=== PATIENT | male | born 1980 | race Caucasian/White ===

== ENCOUNTER 2016-12-03 16:30 | Emergency (ER) | payer SELFPAY ==
[~2016-12-03] VITALS: Ht 175.3 cm; Wt 90.0 kg
[2016-12-03 16:32] VITALS: BP 163/86; PULSE 60; RESP 20; TEMP 98.4; O2SAT 98
== END 2016-12-03 18:44 | disposition left against medical advice (07) ==
LOC: NETRI 16:30
DX: R56.9 Unspecified convulsions (principal); Z53.21 Procedure and treatment not carried out due to patient leaving prior to being seen by health care provider
CPT/HCPCS: 99281

== ENCOUNTER 2016-12-05 12:33 | Emergency (ER) | payer SELFPAY ==
[~2016-12-05] VITALS: Ht 175.3 cm; Wt 86.3 kg
[2016-12-05 12:35] VITALS: BP 173/88; PULSE 48; RESP 20; TEMP 98; O2SAT 100
--- NOTE | 2016-12-05 12:51 | PD ---
Physical Exam Date Seen by Provider: Dec 05, 2016 Time Seen by Provider: 12:47 Narrative 36-year-old white male presents to emergency department for evaluation of seizures. The patient states that he is had a history of seizure disorder but has not been on medications for many years. The patient reports having recurrent seizures now over the last few weeks. He has had 2 seizures. He states that he has taken Xanax in the past. He states that he has not taken Xanax now in a month. He denies any recent illness. No recent injury. He states that he is here to get on something for his seizures so he can get medical clearance to return to work. Vital signs reviewed. Awaiting bed placement. Data Data Last Documented VS Vital Signs Date Time Temp Pulse Resp B/P (MAP) Pulse Ox O2 Delivery O2 Flow Rate FiO2 12/05/16 12:35 98.0 48 20 173/88 (116) 100 Room Air [facility] Medical Record Reviewed: No Supervised Visit with ANSELMO: Sebastian Calderon Dec 05, 2016 12:51
--- NOTE | 2016-12-05 13:27 | PD ---
HPI Chief Complaint: Medical Clearance Time Seen by Provider: 13:13 Travel History International Travel<30 days: No Contact w/Intl Traveler<30days: No Traveled to known affect area: No History of Present Illness HPI Patient is a 36-year-old male presenting to the emergency department for evaluation of seizures. Patient states that he needs a work note to return to work. He reports a history of seizure disorder since he was 14 years old related to a head injury, he states that he was taking Xanax 1-2 times a day until one month ago. Since that time he's had 2 seizures last one was approximately one week ago. He was on Depakote several years ago but has not been on any other medications since that time. After the last seizure which occurred at work patient was taken to [facility] in [place], he states they gave him a Xanax and sent him home. Patient does not want to be on Xanax. He wants to be able to return to work. Patient states that he did not lose control of his bladder or bowels during the seizures. [facility] Past Medical History Seizures: Yes Social History Alcohol Use: No Tobacco Use: No Substance Use: No Allergies-Medications (Allergen,Severity, Reaction): Coded Allergies: No Known Allergies (Unverified , 12/05/16) Reported Meds & Prescriptions Reported Meds & Active Scripts Active No Active Prescriptions or Reported Medications Review of Systems Except as stated in HPI: all other systems reviewed are Neg Neurologic: Positive: Seizures Physical Exam Narrative GENERAL: Well-developed, well-nourished, alert male. Resting comfortably in no acute distress. SKIN: Warm and dry. HEAD: Atraumatic. Normocephalic. EYES: Pupils equal and round. No scleral icterus. No injection or drainage. ENT: No nasal bleeding or discharge. Mucous membranes pink and moist. NECK: Trachea midline. No JVD. CARDIOVASCULAR: Regular rate and rhythm. RESPIRATORY: No accessory muscle use. Clear to auscultation. Breath sounds equal bilaterally. GASTROINTESTINAL: Abdomen soft, non-tender, nondistended. Hepatic and splenic margins not palpable. MUSCULOSKELETAL: Extremities without clubbing, cyanosis, or edema. No obvious deformities. NEUROLOGICAL: Awake and alert. No obvious cranial nerve deficits. Motor grossly within normal limits. Five out of 5 muscle strength in the arms and legs. Normal speech. PSYCHIATRIC: Appropriate mood and affect; insight and judgment normal. Data Data Last Documented VS Vital Signs Date Time Temp Pulse Resp B/P (MAP) Pulse Ox O2 Delivery O2 Flow Rate FiO2 12/05/16 12:35 98.0 48 20 173/88 (116) 100 Room Air Orders Orders Complete Blood Count With Diff (12/05/16 13:24) Electrocardiogram (12/05/16 ) Ct Brain W/O Iv Contrast(Rout) (12/05/16 ) Iv Access Insert/Monitor (12/05/16 13:24) Comprehensive Metabolic Panel (12/05/16 13:24) Sodium Chloride 0.9% Flush (Ns Flush) (12/05/16 13:30) Mandatory Outpatient Referral (12/05/16 14:42) Labs Laboratory Tests Test 12/05/16 14:00 White Blood Count 9.9 TH/MM3 Red Blood Count 5.19 MIL/MM3 Hemoglobin 14.8 GM/DL Hematocrit 45.6 % Mean Corpuscular Volume 87.8 FL Mean Corpuscular Hemoglobin 28.5 PG Mean Corpuscular Hemoglobin Concent 32.5 % Red Cell Distribution Width 14.1 % Platelet Count 232 TH/MM3 Mean Platelet Volume 8.2 FL Neutrophils (%) (Auto) 82.8 % Lymphocytes (%) (Auto) 10.6 % Monocytes (%) (Auto) 5.0 % Eosinophils (%) (Auto) 1.3 % Basophils (%) (Auto) 0.3 % Neutrophils # (Auto) 8.2 TH/MM3 Lymphocytes # (Auto) 1.0 TH/MM3 Monocytes # (Auto) 0.5 TH/MM3 Eosinophils # (Auto) 0.1 TH/MM3 Basophils # (Auto) 0.0 TH/MM3 CBC Comment DIFF FINAL Differential Comment Blood Urea Nitrogen 11 MG/DL Creatinine 1.09 MG/DL Random Glucose 101 MG/DL Total Protein 8.0 GM/DL Albumin 4.0 GM/DL Calcium Level 8.8 MG/DL Alkaline Phosphatase 78 U/L Aspartate Amino Transf (AST/SGOT) 19 U/L Alanine Aminotransferase (ALT/SGPT) 30 U/L Total Bilirubin 0.8 MG/DL Sodium Level 136 MEQ/L Potassium Level 4.4 MEQ/L Chloride Level 107 MEQ/L Carbon Dioxide Level 24.7 MEQ/L Anion Gap 4 MEQ/L Estimat Glomerular Filtration Rate 76 ML/MIN MDM Medical Decision Making Medical Screen Exam Complete: Yes Emergency Medical Condition: Yes Interpretation(s) Last Impressions Head CT 12/05/16 0000 Signed Impressions: Service Date/Time: Monday, December 05, 2016 13:55 - CONCLUSION: 1. No acute intracranial abnormality identified. Damon Leach MD Laboratory Tests Test 12/05/16 14:00 White Blood Count 9.9 TH/MM3 Red Blood Count 5.19 MIL/MM3 Hemoglobin 14.8 GM/DL Hematocrit 45.6 % Mean Corpuscular Volume 87.8 FL Mean Corpuscular Hemoglobin 28.5 PG Mean Corpuscular Hemoglobin Concent 32.5 % Red Cell Distribution Width 14.1 % Platelet Count 232 TH/MM3 Mean Platelet Volume 8.2 FL Neutrophils (%) (Auto) 82.8 % Lymphocytes (%) (Auto) 10.6 % Monocytes (%) (Auto) 5.0 % Eosinophils (%) (Auto) 1.3 % Basophils (%) (Auto) 0.3 % Neutrophils # (Auto) 8.2 TH/MM3 Lymphocytes # (Auto) 1.0 TH/MM3 Monocytes # (Auto) 0.5 TH/MM3 Eosinophils # (Auto) 0.1 TH/MM3 Basophils # (Auto) 0.0 TH/MM3 CBC Comment DIFF FINAL Differential Comment Blood Urea Nitrogen 11 MG/DL Creatinine 1.09 MG/DL Random Glucose 101 MG/DL Total Protein 8.0 GM/DL Albumin 4.0 GM/DL Calcium Level 8.8 MG/DL Alkaline Phosphatase 78 U/L Aspartate Amino Transf (AST/SGOT) 19 U/L Alanine Aminotransferase (ALT/SGPT) 30 U/L Total Bilirubin 0.8 MG/DL Sodium Level 136 MEQ/L Potassium Level 4.4 MEQ/L Chloride Level 107 MEQ/L Carbon Dioxide Level 24.7 MEQ/L Anion Gap 4 MEQ/L Estimat Glomerular Filtration Rate 76 ML/MIN Vital Signs Date Time Temp Pulse Resp B/P (MAP) Pulse Ox O2 Delivery O2 Flow Rate FiO2 12/05/16 12:35 98.0 48 20 173/88 (116) 100 Room Air Differential Diagnosis Metabolic abnormalities versus seizure disorder versus benzodiazepine withdrawal versus other Narrative Course Patient is a 28-year-old male presenting for medical clearance to return to work after having 2 seizures over the last 3 weeks. He does have a history of seizure disorder but has not been on Depakote in several years. The only medication he has been taking consistently his Xanax 2 mg tablets 1 or 2 times a day. He has not had this in a month. Labs and imaging ordered and pending. A mandatory referral to neurology has been made. CBC, CMP reviewed, no acute abnormalities identified. CT scan of the brain shows no acute abnormalities. EKG shows sinus bradycardia, this was reviewed by my attending physician. Plan of care discussed with my attending physician. Patient will be discharged home again with a mandatory referral to neurology. Patient was advised that we cannot medically clear him for seizure disorder in the emergency department however he was reassured at this time that there were no acute findings. Pt will be started on keppra 500mg PO BID at this time pending neurology evaluation. Diagnosis Primary Impression: Seizure disorder Referrals: Neurologist 1 week Patient Instructions: General Instructions, Nonepileptic Seizures (GEN) Additional Instructions: Follow-up with a neurologist, mandatory referral has been made for you as discussed Take medications as directed Return to emergency department for any new or worsening symptoms Med/Other Pt SpecificInfo: Prescription(s) given Scripts Levetiracetam (Keppra) 500 Mg Tab 500 MG PO BID for Control Seizures, #60 TAB 0 Refills Prov: Alicia Valdivia 12/05/16 Disposition: 01 DISCHARGE HOME Condition: Stable Alicia Valdivia Dec 05, 2016 13:27
[2016-12-05] MEDS ORDERED: SODIUM CHLORIDE 0.9% FLUSH 10 ML FLUSH IVF PRN (13:30)
--- NOTE | 2016-12-05 14:15 | RADRPT ---
EXAM DATE/TIME: 12/05/2016 13:55 [facility] COMPARISON: No previous studies available for comparison. INDICATIONS : Multiple seizures during last three weeks. RADIATION DOSE: 56.35 CTDIvol (mGy) MEDICAL HISTORY : None SURGICAL HISTORY : None. ENCOUNTER: Initial ACUITY: 3 weeks PAIN SCALE: 0/10 LOCATION: cranial TECHNIQUE: Multiple contiguous axial images were obtained of the head. Using automated exposure control and adj ustment of the mA and/or kV according to patient size, radiation dose was kept as low as reasonably a chievable to obtain optimal diagnostic quality images. DICOM format image data is available electro nically for review and comparison. FINDINGS: CEREBRUM: The ventricles are normal for age. No evidence of midline shift, mass lesion, hemorrhage or acute in farction. No extra-axial fluid collections are seen. POSTERIOR FOSSA: The cerebellum and brainstem are intact. The 4th ventricle is midline. The cerebellopontine angle i s unremarkable. EXTRACRANIAL: The visualized portion of the orbits is intact. SKULL: The calvaria is intact. No evidence of skull fracture. CONCLUSION: 1. No acute intracranial abnormality identified. Damon Leach MD on December 05, 2016 at 14:11 Board Certified Radiologist. This report was verified electronically.
[2016-12-05 14:16] LABS: AUTOMATED NEUTROPHIL # 8.2 TH/MM3 (1.8-7.7); BASOPHIL % 0.3 % (0.0-2.0); EOSINOPHIL # 0.1 TH/MM3 (0-0.4); EOSINOPHIL % 1.3 % (0.0-4.0); HEMATOCRIT 45.6 % (39.0-51.0); HEMO FLAGS DIFF FINAL; LYMPH % 10.6 % (9.0-44.0); MEAN CELL VOLUME 87.8 FL (80.0-100.0); MEAN CORPUSCULAR HEMOGLOBIN 28.5 PG (27.0-34.0); MEAN CORPUSCULAR HGB CONC 32.5 % (32.0-36.0); NEUT % 82.8 % (16.0-70.0); PLATELET COUNT 232 TH/MM3 (150-450); RED BLOOD COUNT 5.19 MIL/MM3 (4.50-5.90); RED CELL DISTRIBUTION WIDTH 14.1 % (11.6-17.2); WHITE BLOOD COUNT 9.9 TH/MM3 (4.0-11.0)
[2016-12-05 14:45] LABS: ALT (GPT) 30 U/L (12-78); ANION GAP 4 MEQ/L (5-15); AST (GOT) 19 U/L (15-37); BICARBONATE 24.7 MEQ/L (21.0-32.0); BLOOD UREA NITROGEN 11 MG/DL (7-18); CHLORIDE 107 MEQ/L (98-107); GLOMERULAR FILTRATION RATE 76 ML/MIN (>89); POTASSIUM 4.4 MEQ/L (3.5-5.1); SODIUM (NA) 136 MEQ/L (136-145)
[2016-12-05 14:47] LABS: ALKALINE PHOSPHATASE 78 U/L (45-117); TOTAL BILIRUBIN ADULT 0.8 MG/DL (0.2-1.0)
[2016-12-05] MEDS ORDERED: LEVE500 PO (15:06)
[2016-12-05 15:13] VITALS: BP 158/77
[2016-12-05] MEDS ORDERED: levETIRAcetam 500 MG TAB PO ONE (15:15)
--- NOTE | 2016-12-05 23:44 | EKG ---
Date Performed: 12/05/2016 Time Performed: 13:38:16 PTAGE: 36 years EKG: SINUS BRADYCARDIA MARKED LEFT AXIS DEVIATION INCOMPLETE RIGHT BUNDLE BRANCH BLOCK ABNORMAL ECG NO PREVIOUS TRACING DOCTOR: Alexander Lamb Interpretating Date/Time 12/05/2016 23:44:01
== END 2016-12-05 15:25 | disposition home or self-care (01) ==
LOC: NEPD 12:33
DX: G40.909 Epilepsy, unspecified, not intractable, without status epilepticus (principal); R00.1 Bradycardia, unspecified
CPT/HCPCS: 70450; 80053; 85025; 93005; 99285